=== PATIENT | female | born 1945 | race Caucasian/White ===

== ENCOUNTER 2016-08-05 22:19 | Emergency (ER) | payer OTHER ==
--- NOTE | ~2016-08-05 | CT52 ---
[facility] A Service [facility] RADIOLOGY TEXT RESULTS PATIENT: KIRSTEN WASHINGTON LOCATION: SED : 47 UNIT #: [id number] AGE: [address]: Deshaun Benson MD SEX: F ORDER DR: [id number] [place] [id number] E MR#: [id number] Acc #: [id number] NAME: KIRSTEN WASHINGTON : 1945 SEX: F STUDY DATE/TIME: 08/05/2016 22:59 UNIT: SED ROOM: STUDY DESCRIPTION: CT Cervical Spine Wo Cont Attending Physician: Deshaun Benson M.D. Ordering Physician: Deshaun Benson M.D. Primary Care Physician: Jaqueline Adam A.P.R.N. MEDICAL IMAGING REPORT This report is preliminary unless electronic signature is present. EXAM CT cervical spine without contrast. INDICATIONS Neck pain after a fall tonight. PROCEDURE Unenhanced CT of the cervical spine. This CT exam was performed with one or more of the following radiation dose reduction techniques: Automatic exposure control, adjustment of mA and/or kV according to patient size, and iterative reconstruction. COMPARISON None. FINDINGS Cervical bodies have normal height. Alignment is preserved. Craniocervical junction and the dens are intact. Multilevel ibfx-tn-hqeebrre degenerative change. No fracture. No critical central canal narrowing. IMPRESSION No acute findings. Dictated by... Iftikhar Griffin M.D. THIS IS AN ELECTRONICALLY VERIFIED REPORT Iftikhar Griffin M.D. at 08/09/2016 7:22 AM EED/bd [facility] A Service [facility] RADIOLOGY TEXT RESULTS PATIENT: KIRSTEN WASHINGTON LOCATION: SED : 47 UNIT #: [id number] AGE: [address]: Deshaun Benson MD SEX: F ORDER DR: TD: 08/06/2016 08:57 JOB #: [id number] MEDICAL IMAGING REPORT Page 1 of 1
--- NOTE | ~2016-08-05 | CR172 ---
[facility]. [facility] A Service of [facility] & [facility] RADIOLOGY TEXT RESULTS PATIENT: KIRSTEN WASHINGTON LOCATION: SED : 47 UNIT #: [id number] AGE: [address]: Deshaun Benson MD SEX: F ORDER DR: [id number] [place] [address] [id number] E MR#: [id number] Acc #: [id number] NAME: KIRSTEN WASHINGTON : 1945 SEX: F STUDY DATE/TIME: 08/05/2016 23:15 UNIT: SED ROOM: STUDY DESCRIPTION: CR Knee 3 Views Lt Attending Physician: Deshaun Benson M.D. Ordering Physician: Deshaun Benson M.D. Primary Care Physician: Jaqueline Adam A.P.R.N. MEDICAL IMAGING REPORT This report is preliminary unless electronic signature is present. EXAM Left knee series INDICATION Left knee pain after a fall tonight. PROCEDURE Three views of the left knee. COMPARISON None. FINDINGS No acute fracture. No dislocation. Knee chondrocalcinosis. IMPRESSION No acute findings. Dictated by... Iftikhar Griffin M.D. THIS IS AN ELECTRONICALLY VERIFIED REPORT Iftikhar Griffin M.D. at 08/09/2016 7:21 AM KRISTEL/albert TD: 08/06/2016 08:57 JOB #: [id number] MEDICAL IMAGING REPORT Page 1 of 1
--- NOTE | ~2016-08-05 | CT71 ---
[facility] A Service [facility] RADIOLOGY TEXT RESULTS PATIENT: KIRSTEN WASHINGTON LOCATION: SED : 47 UNIT #: [id number] AGE: [address]: Deshaun Benson MD SEX: F ORDER DR: [id number] [place] [address] [id number] E MR#: [id number] Acc #: [id number] NAME: KIRSTEN WASHINGTON : 1945 SEX: F STUDY DATE/TIME: 08/05/2016 23:08 UNIT: SED ROOM: STUDY DESCRIPTION: CT Head Wo Contrast Attending Physician: Deshaun Benson M.D. Ordering Physician: Deshaun Benson M.D. Primary Care Physician: Jaqueline Adam A.P.R.N. MEDICAL IMAGING REPORT This report is preliminary unless electronic signature is present. EXAM CT head without contrast INDICATION Head pain after a fall tonight. PROCEDURE Unenhanced CT head. This CT examination was performed with one or more of the following radiation dose reduction techniques: automatic exposure control, adjustment of mA and/or kV according to patient size, and iterative reconstruction. COMPARISON None. FINDINGS No acute hemorrhage, abnormal mass effect, extraaxial collection or hydrocephalus. Soft tissue swelling and laceration left supraorbital region. No calvarial fracture. Paranasal sinuses and mastoid air cells are clear. IMPRESSION No acute intracranial findings. Dictated by... Iftikhar Griffin M.D. THIS IS AN ELECTRONICALLY VERIFIED REPORT Iftikhar Griffin M.D. at 08/09/2016 7:22 AM EED/albert [facility] A Service [facility] RADIOLOGY TEXT RESULTS PATIENT: KIRSTEN WASHINGTON LOCATION: SED : 47 UNIT #: [id number] AGE: [address]: Deshaun Benson MD SEX: F ORDER DR: TD: 08/06/2016 08:58 JOB #: [id number] MEDICAL IMAGING REPORT Page 1 of 1
--- NOTE | ~2016-08-05 | CT101 ---
[facility] A Service of [facility] RADIOLOGY TEXT RESULTS PATIENT: KIRSTEN WASHINGTON LOCATION: SED : 47 UNIT #: [id number] AGE: [address]: Deshaun Benson MD SEX: F ORDER DR: [id number] [place] [address] [id number] E MR#: [id number] Acc #: [id number] NAME: KIRSTEN WASHINGTON : 1945 SEX: F STUDY DATE/TIME: 08/05/2016 22:59 UNIT: SED ROOM: STUDY DESCRIPTION: CT Maxillofacial Area Wo Cont Attending Physician: Deshaun Benson M.D. Ordering Physician: Deshaun Benson M.D. Primary Care Physician: Jaqueline Adam A.P.R.N. MEDICAL IMAGING REPORT This report is preliminary unless electronic signature is present. EXAM CT maxillofacial area without contrast INDICATION Left eye laceration and pain after a fall tonight. PROCEDURE Unenhanced CT of the facial bones. This CT examination was performed with one or more of the following radiation dose reduction techniques: automatic exposure control, adjustment of mA and/or kV according to patient size, and iterative reconstruction. COMPARISON None. FINDINGS Nasal bone fracture is mildly deviated to the left. No other facial bone fracture. There is a left supraorbital laceration. Soft tissue swelling. Globes are intact. IMPRESSION 1. Nasal bone fractures are mildly deviated to the left. No other acute facial bone fracture. 2. Left supraorbital soft tissue swelling and laceration. Dictated by... Iftikhar Griffin M.D. THIS IS AN ELECTRONICALLY VERIFIED REPORT Iftikhar Griffin M.D. at 08/09/2016 7:22 AM EED/mjs [facility] A Service [facility] RADIOLOGY TEXT RESULTS PATIENT: KIRSTEN WASHINGTON LOCATION: SED : 47 UNIT #: [id number] AGE: [address]: Deshaun Benson MD SEX: F ORDER DR: TD: 08/06/2016 08:52 JOB #: [id number] MEDICAL IMAGING REPORT Page 1 of 1
[2016-08-05] MEDS ORDERED: NATURAL VITA100 UNIT (22:40)
[2016-08-05] MEDS ORDERED: EYE DROP15 ML (22:40)
[2016-08-05] MEDS ORDERED: CALCIUM500 M1 (22:41)
[2016-08-05] MEDS ORDERED: ACETAMINOPHEN (22:41)
== END 2016-08-06 01:25 | disposition home or self-care (01) ==
LOC: SED 22:19
DX: S06.0X9A Concussion with loss of consciousness of unspecified duration, initial encounter (principal); S01.81XA Laceration without foreign body of other part of head, initial encounter; S16.1XXA Strain of muscle, fascia and tendon at neck level, initial encounter; Z88.0 Allergy status to penicillin; Z88.8 Allergy status to other drugs, medicaments and biological substances; Z23 Encounter for immunization; X58.XXXA Exposure to other specified factors, initial encounter; Y92.830 Public park as the place of occurrence of the external cause
CPT/HCPCS: 12001; 29530; 70450; 70486; 72125; 73562; 90471; 90715; 99284

== ENCOUNTER 2016-09-02 15:10 | Emergency (ER) | payer OTHER ==
--- NOTE | ~2016-09-02 | CR286 ---
[facility] A Service of [facility] RADIOLOGY TEXT RESULTS PATIENT: KIRSTEN WASHINGTON LOCATION: SED : 47 UNIT #: [id number] AGE: [address]: Deshaun Cedeño SEX: F ORDER DR: [id number] [address] [address] [id number] E MR#: [id number] Acc #: [id number] NAME: KIRSTEN WASHINGTON : 1945 SEX: F STUDY DATE/TIME: 09/02/2016 16:17 UNIT: SED ROOM: STUDY DESCRIPTION: CR Wrist W Navicular Min 3 Rt Attending Physician: Deshaun Cedeño P.A.-C. Ordering Physician: Deshaun Cedeño P.A.-C. Primary Care Physician: Jaqueline Adam A.P.R.N. MEDICAL IMAGING REPORT This report is preliminary unless electronic signature is present. EXAM Right wrist series, 09/02/2016 HISTORY Trauma. Fall at home today at 1:30 p.m. Right wrist pain, lateral posterior pain. FINDINGS AP, lateral and oblique radiographs of the right wrist are presented. Diminished bony mineralization. There is a complete, transverse, impacted fracture of the distal radius. The transverse fracture plane is approximately 1 cm from the articular surface of the radius. On the lateral view, there is a 5-mm cortical fragment along the posterior aspect of the radius at level of the fracture, which is angled posteriorly, with maximum posterior displacement at the proximal aspect of this fracture fragment by about 2 mm. No other displaced fracture fragments are seen. There is no clear indication of intraarticular extension of a fracture plane. The radiocarpal joint relationship remains normal. There is a nondisplaced 3-mm fracture of the ulnar styloid process. Carpal bones themselves appear intact. The visualized bones of hand intact. Circumferential soft tissue swelling most pronounced along the anterior and posterior aspects of the wrist without soft tissue defect, subcutaneous air or radiodense foreign body. Dictated by... Deshaun Villa M.D. THIS IS AN ELECTRONICALLY VERIFIED REPORT Deshaun Villa M.D. at 09/03/2016 9:54 PM ALAN/rainer [facility] A Service of [facility] RADIOLOGY TEXT RESULTS PATIENT: KIRSTEN WASHINGTON [place] [facility] [birth year] UNIT #: [id number] AGE: [address]: Deshaun Cedeño PAC SEX: F ORDER DR: TD: 09/02/2016 23:48 JOB #: [id number] MEDICAL IMAGING REPORT Page 1 of 1
[~2016-09-02 15:10] MED LIST: ACETAMINOPHEN; CALCIUM500 M1; EYE DROP15 ML; NATURAL VITA100 UNIT
== END 2016-09-02 16:58 | disposition home or self-care (01) ==
LOC: SED 15:10
DX: S52.614A Nondisplaced fracture of right ulna styloid process, initial encounter for closed fracture (principal); S52.591A Other fractures of lower end of right radius, initial encounter for closed fracture; W18.30XA Fall on same level, unspecified, initial encounter; Y92.096 Garden or yard of other non-institutional residence as the place of occurrence of the external cause
CPT/HCPCS: 29125; 73110; 99283

== ENCOUNTER → 2016-10-21 | Outpatient (CLI) | payer OTHER ==
--- NOTE | ~2016-10-21 | CR169 ---
[facility] A Service [facility] RADIOLOGY TEXT RESULTS PATIENT: KIRSTEN WASHINGTON LOCATION: [facility] : [birth year] UNIT #: [id number] AGE: [address]: Jaqueline Adam SEX: F ORDER DR: [id number] [address] [address] [id number] O MR#: [id number] Acc #: [id number] NAME: KIRSTEN WASHINGTON : 1945 SEX: F STUDY DATE/TIME: 10/21/2016 15:36 UNIT: [facility] ROOM: STUDY DESCRIPTION: CR Knee 2 Views Lt Attending Physician: Jaqueline Adam A.P.R.N. Referring Physician: Jaqueline Adam A.P.R.N. Ordering Physician: Jaqueline Adam A.P.R.N. Primary Care Physician: Jaqueline Adam A.P.R.N. MEDICAL IMAGING REPORT This report is preliminary unless electronic signature is present. EXAM Two views left knee 10/21/2016 HISTORY Left lateral knee pain and bruising after falling in the bathroom 2 days ago. COMPARISON Left knee radiographs 08/05/2016. FINDINGS No fracture, joint dislocation or joint effusion is seen. Chondrocalcinosis change is demonstrated in the lateral meniscus. Raiz-yn-edmemqma medial compartment joint space narrowing. No significant osteophytosis. No definite joint effusion. IMPRESSION 1. Kmaa-xw-pcgljwfs medial compartment joint space narrowing and lateral meniscal chondrocalcinosis. 2. No acute findings or significant change compared to 08/05/2016. Dictated by... Lisa Vallejo M.D. THIS IS AN ELECTRONICALLY VERIFIED REPORT Lisa Vallejo M.D. at 10/22/2016 2:21 PM SEAMUS/albert TD: 10/22/2016 08:11 JOB #: [id number] [facility] A Service [facility] RADIOLOGY TEXT RESULTS PATIENT: KIRSTEN WASHINGTON LOCATION: [facility] : [birth year] UNIT #: [id number] AGE: [address]: Jaqueline Adam SEX: F ORDER DR: MEDICAL IMAGING REPORT Page 1 of 1
== END | disposition home or self-care (01) ==
LOC: SRAD 15:29
DX: M25.562 Pain in left knee (principal); M11.262 Other chondrocalcinosis, left knee; M25.862 Other specified joint disorders, left knee
CPT/HCPCS: 73560